=== PATIENT | female | born 1950 | race Caucasian/White ===

== ENCOUNTER 2016-10-16 16:28 | Emergency (ER) | payer MEDICARE ==
[~2016-10-16] VITALS: Ht 157.5 cm; Wt 75.7 kg
[2016-10-16 16:35] VITALS: BP 124/77
[2016-10-16] MEDS ORDERED: OXYcodone/APAP 5/325MG TABLET ONE (17:37)
[2016-10-16] MEDS ORDERED: OXYcodone/APAP 5/325MG TABLET PO ONE (18:00)
== END 2016-10-16 19:07 ==
LOC: ED 18:01
DX: S39.012A Strain of muscle, fascia and tendon of lower back, initial encounter (principal); S29.012A Strain of muscle and tendon of back wall of thorax, initial encounter; X58.XXXA Exposure to other specified factors, initial encounter; Y93.89 Activity, other specified; Y92.89 Other specified places as the place of occurrence of the external cause; Y99.8 Other external cause status
CPT/HCPCS: 72072; 72110; 99284

== ENCOUNTER 2017-06-22 13:01 | Day surgery (SDC) | payer MEDICARE ==
[~2017-06-22] VITALS: Ht 157.5 cm; Wt 71.4 kg
[2017-06-22] MEDS ORDERED: SODIUM CHLORIDE 0.9% 1,000 ML IV ONE (14:30)
[2017-06-22 14:34] VITALS: BP 122/64
[2017-06-22] MEDS ORDERED: LISI1TAB7 PO (14:52)
[2017-06-22] MEDS ORDERED: OMEP-110 PO (14:52)
[2017-06-22] MEDS ORDERED: TIZA4CAP PO (14:52)
[2017-06-22] MEDS ORDERED: MELO15TA24 PO (14:52)
[2017-06-22] MEDS ORDERED: LEVO50TA5 PO (14:52)
[2017-06-22] MEDS ORDERED: SIMV40TA3 PO (14:52)
[2017-06-22] MEDS ORDERED: POLY17PO5 PO (14:52)
[2017-06-22] MEDS ORDERED: ASPI-496 PO (14:52)
[2017-06-22] MEDS ORDERED: ESCI10TA PO (14:52)
[2017-06-22] MEDS ORDERED: ASCO100T5 PO (14:52)
[2017-06-22] MEDS ORDERED: OMEG-157 PO (14:52)
[2017-06-22] MEDS ORDERED: MULT-6 PO (14:57)
[2017-06-22] MEDS ORDERED: ASPIRIN 325 MG TABLET PO ONE (15:00)
[2017-06-22 15:04] LABS: BASOPHILS # (AUTO) 0.06 x10^3/uL (0-0.1); BASOPHILS % (AUTO) 1 % (0-1); EOSINOPHILS # (AUTO) 0.42 x10^3/uL (0-0.4); EOSINOPHILS % (AUTO) 4 % (1-7); LYMPHOCYTES # (AUTO) 2.88 x10^3/uL (1-3.4); LYMPHOCYTES % (AUTO) 27 % (22-44); MD NO; MEAN CORPUSCULAR HEMOGLOBIN 29.3 pg (27.0-34.8); MEAN CORPUSCULAR HGB CONC 33.4 g/dL (32.4-35.8); MEAN CORPUSCULAR VOLUME 87.8 fL (80-100); MEAN PLATELET VOLUME 8.6 fL (7.4-10.4); MONOCYTES # (AUTO) 0.73 x10^3/uL (0.2-0.8); MONOCYTES % (AUTO) 7 % (2-9); NEUTROPHILS # (AUTO) 6.57 x10^3/uL (1.8-6.8); NEUTROPHILS % (AUTO) 62 % (42-75); PLATELET COUNT 308 x10^3/uL (130-400); RED BLOOD COUNT 4.57 x10^6/uL (3.82-5.3); RED CELL DISTRIBUTION WIDTH 13.8 % (9.6-15.2)
[2017-06-22 15:16] LABS: ANION GAP 10 mmol/L (5-15); CHLORIDE 104 mmol/L (98-107)
[2017-06-22 15:17] LABS: CREATININE 1.11 mg/dL (0.55-1.02)
[2017-06-22] MEDS ORDERED: ASPIRIN 325 MG TABLET EC ONE (15:19)
[2017-06-22] MEDS ORDERED: MIDAZOLAM 1 MG/ML, 5ML ONE (15:35)
[2017-06-22] MEDS ORDERED: HEPARIN 1,000 UNITS/ML, 10ML ONE (15:36)
[2017-06-22] MEDS ORDERED: FENTANYL PF 100 MCG/2ML ONE (15:36)
[2017-06-22] MEDS ORDERED: BIVALIRUDIN 250 MG ONE (15:36)
[2017-06-22] MEDS ORDERED: VERAPAMIL 2.5 MG/ML, 2ML ONE (15:36)
[2017-06-22] MEDS ORDERED: TICAGRELOR 90 MG TABLET ONE (15:36)
[2017-06-22] MEDS ORDERED: LIDOCAINE 2%, 2ML ONE (15:37)
== END 2017-06-22 18:54 | disposition home or self-care (01) ==
LOC: CACL 13:01 → 5SO 16:40 → CACL 18:54
PROVIDERS: ATTEND Internal Medicine Cardiovascular Disease
DX: I25.110 Atherosclerotic heart disease of native coronary artery with unstable angina pectoris (principal); E78.5 Hyperlipidemia, unspecified; J44.9 Chronic obstructive pulmonary disease, unspecified; I10 Essential (primary) hypertension; Z79.82 Long term (current) use of aspirin; Z88.5 Allergy status to narcotic agent; Z87.891 Personal history of nicotine dependence
CPT/HCPCS: 36415; 80048; 85025; 93458; 99156; 99157; C1894; J1644; J2250; J3010; J3490; J7030; Q9967; J0583

== ENCOUNTER 2018-06-06 14:31 | Emergency (ER) | payer MEDICARE ==
[~2018-06-06] VITALS: Ht 157.5 cm; Wt 68.5 kg
[~2018-06-06 14:31] MED LIST: ASCO100T5 PO; ASPI-496 PO; ESCI10TA PO; LEVO50TA5 PO; LISI1TAB7 PO; MELO15TA24 PO; MULT-6 PO; OMEG-157 PO; OMEP-110 PO; POLY17PO5 PO; SIMV40TA3 PO; TIZA4CAP PO
--- NOTE | 2018-06-06 14:42 | NUR ---
SEE TRIAGE NOTE. PT PLACED ON HEART MONITOR, BP CUFF, PULSE OX. PT DENIES PAIN AT THIS TIME. EKG COMPLETED AT BS. WARM BLANKET PROVIDED, CALL LIGHT WITHIN REACH.
[2018-06-06] MEDS ORDERED: MECLIZINE 25 MG TABLET PO ONE (15:30)
[2018-06-06] MEDS ORDERED: MECLIZINE CHEWABLE 25 MG TAB ONE (15:36)
[2018-06-06 15:40] LABS: BASOPHILS # (AUTO) 0.03 x10^3/uL (0-0.1); BASOPHILS % (AUTO) 0 % (0-1); EOSINOPHILS # (AUTO) 0.15 x10^3/uL (0-0.4); EOSINOPHILS % (AUTO) 1 % (1-7); LYMPHOCYTES # (AUTO) 2.02 x10^3/uL (1-3.4); LYMPHOCYTES % (AUTO) 17 % (22-44); MD NO; MEAN CORPUSCULAR HEMOGLOBIN 28.8 pg (27.0-34.8); MEAN CORPUSCULAR VOLUME 87.2 fL (80-100); MEAN PLATELET VOLUME 8.6 fL (7.4-10.4); MONOCYTES % (AUTO) 3 % (2-9); NEUTROPHILS # (AUTO) 9.54 x10^3/uL (1.8-6.8); NEUTROPHILS % (AUTO) 79 % (42-75); PLATELET COUNT 287 x10^3/uL (130-400); RED BLOOD COUNT 4.51 x10^6/uL (3.82-5.3); RED CELL DISTRIBUTION WIDTH 13.9 % (9.6-15.2)
[2018-06-06 15:51] LABS: ALANINE AMINOTRANSFERASE 31 U/L (12-78); ANION GAP 7 mmol/L (5-15); CALCIUM 8.8 mg/dL (8.5-10.1); CHLORIDE 99 mmol/L (98-107); CREATININE 1.15 mg/dL (0.55-1.02)
--- NOTE | 2018-06-06 15:51 | NUR ---
PT MEDICATED PER ERP ORDER FOR DIZZINESS. PT UP TO BR WITH SBA TO PROVIDE UA. CALL LIGHT WITHIN REACH, FAMILY AT BS.
[2018-06-06 15:55] LABS: ALKALINE PHOSPHATASE 68 U/L (45-117); BILIRUBIN,TOTAL 0.4 mg/dL (0.2-1.0); TOTAL PROTEIN 7.1 g/dL (6.4-8.2); TROPONIN I 0.015 ng/mL (0.000-0.045)
--- NOTE | 2018-06-06 16:15 | NUR ---
URINE COLLECTED/SENT TO LAB. PT IN CT.
[2018-06-06 16:26] LABS: MICROSCOPIC AUTO
[2018-06-06 16:33] LABS: CULTURE INDICATED? YES
--- NOTE | 2018-06-06 16:39 | NUR ---
ALL RESULTS BACK, PT FOR RECHECK.
--- NOTE | 2018-06-06 17:30 | NUR ---
CHICKEN BROTH GIVEN PER ERP INSTRUCTION. ADD ON LAB. PT AND FAMILY INSTRUCTED ON POC CHANGES. CALL LIGHT WITHIN REACH.
[2018-06-06 18:11] VITALS: BP 149/57
== END 2018-06-06 18:24 | disposition home or self-care (01) ==
LOC: ED 18:18
DX: E87.1 Hypo-osmolality and hyponatremia (principal); R42 Dizziness and giddiness; E03.9 Hypothyroidism, unspecified; I10 Essential (primary) hypertension; E78.00 Pure hypercholesterolemia, unspecified; K21.9 Gastro-esophageal reflux disease without esophagitis; Z90.49 Acquired absence of other specified parts of digestive tract; Z90.710 Acquired absence of both cervix and uterus
CPT/HCPCS: 36415; 70450; 71045; 80053; 81001; 83930; 84300; 84443; 84484; 85025; 87086; 87147; 93005; 99284

== ENCOUNTER → 2019-04-03 | Outpatient (CLI) | payer MEDICARE ==
[~2019-04-03] MED LIST changes: +LISI1TAB20 PO; -LISI1TAB7 PO; +SIMV40TA20 PO; -SIMV40TA3 PO
== END | disposition home or self-care (01) ==
LOC: CFH 08:35
PROVIDERS: ATTEND Internal Medicine Cardiovascular Disease
DX: I08.3 Combined rheumatic disorders of mitral, aortic and tricuspid valves (principal); I08.8 Other rheumatic multiple valve diseases
CPT/HCPCS: 93306

== ENCOUNTER 2019-08-30 08:10 | Observation (INO) | payer MEDICARE ==
[~2019-08-30] VITALS: Ht 157.5 cm; Wt 61.0 kg
[~2019-08-30 08:10] MED LIST changes: +ALBU90AE INH; +APIX5TAB PO; +DIGO125T85 PO; +DILT120C11 PO; +DILT240C55 PO; +FLUT1BLS3 IH; +FURO20TA3 PO; +LEVO50TA PO; +LISI5TAB7 PO; +METO50TA82 PO; +NYST1000 PO; +WARF-36 PO
[2019-08-30] MEDS ORDERED: SODIUM CHLORIDE 0.9% 1,000 ML IV SCH ×2 (09:20→14:24)
[2019-08-30 09:25] VITALS: BP 120/89
[2019-08-30 10:04] LABS: BASOPHILS % (AUTO) 1 % (0-1); EOSINOPHILS # (AUTO) 0.23 x10^3/uL (0-0.4); EOSINOPHILS % (AUTO) 3 % (1-7); LYMPHOCYTES # (AUTO) 2.24 x10^3/uL (1-3.4); LYMPHOCYTES % (AUTO) 29 % (22-44); MD NO; MEAN CORPUSCULAR HEMOGLOBIN 28.8 pg (27.0-34.8); MEAN CORPUSCULAR VOLUME 87.2 fL (80-100); MEAN PLATELET VOLUME 8.5 fL (7.4-10.4); MONOCYTES # (AUTO) 0.64 x10^3/uL (0.2-0.8); MONOCYTES % (AUTO) 8 % (2-9); NEUTROPHILS # (AUTO) 4.42 x10^3/uL (1.8-6.8); NEUTROPHILS % (AUTO) 58 % (42-75); PLATELET COUNT 358 x10^3/uL (130-400); RED CELL DISTRIBUTION WIDTH 15.1 % (9.6-15.2)
[2019-08-30 10:14] LABS: ANION GAP 6 mmol/L (5-15); CALCIUM 9.8 mg/dL (8.5-10.1); CHLORIDE 108 mmol/L (98-107); CREATININE 1.09 mg/dL (0.55-1.02)
[2019-08-30 10:18] LABS: INTERNATIONAL NORMALIZED RATIO 1.16 (0.93-1.1); PROTHROMBIN TIME 12.3 Seconds (9.6-11.5)
[2019-08-30] MEDS ORDERED: HEPARIN 1,000 UNITS/ML, 10ML ONE (12:08)
[2019-08-30] MEDS ORDERED: MIDAZOLAM 1 MG/ML, 5ML ONE (12:08)
[2019-08-30] MEDS ORDERED: FENTANYL PF 100 MCG/2ML ONE (12:08)
[2019-08-30] MEDS ORDERED: VERAPAMIL 2.5 MG/ML, 2ML ONE (12:09)
[2019-08-30 14:25] VITALS: BP 117/72
[2019-08-30] MEDS ORDERED: ALBUTEROL HFA 90 MCG/SPRAY INH PRN (14:30)
[2019-08-30] MEDS ORDERED: WARFARIN 5 MG TABLET PO-COUM SCH (18:00)
[2019-08-30] MEDS ORDERED: ACETAMINOPHEN 325 MG TABLET PO PRN ×2 (18:30)
[2019-08-30 21:00] VITALS: BP 105/63
[2019-08-31 01:35] VITALS: BP 95/60
[2019-08-31 05:42] LABS: CHLORIDE 107 mmol/L (98-107)
[2019-08-31 05:49] LABS: ANION GAP 5 mmol/L (5-15); CALCIUM 8.6 mg/dL (8.5-10.1); CREATININE 0.96 mg/dL (0.55-1.02)
[2019-08-31] MEDS ORDERED: LEVOTHYROXINE 50 MCG TABLET PO SCH (06:00)
[2019-08-31 07:49] VITALS: BP 123/79
[2019-08-31] MEDS ORDERED: DIGOXIN 0.125 MG TABLET PO SCH (09:00)
[2019-08-31] MEDS ORDERED: ESCITALOPRAM 10MG TABLET PO SCH (09:00)
[2019-08-31] MEDS ORDERED: DILTIAZEM 240 MG CAP.ER.24H PO SCH (09:00)
[2019-08-31] MEDS ORDERED: FUROSEMIDE 20 MG TABLET PO SCH (09:00)
[2019-08-31] MEDS ORDERED: FURO20TA3 PO (10:07)
[2019-08-31] MEDS ORDERED: ACET325T26 PO (10:07)
[2019-08-31] MEDS ORDERED: WARF-36 PO (10:07)
[2019-08-31] MEDS ORDERED: DILT240C55 PO (10:07)
== END 2019-08-31 12:04 | disposition home or self-care (01) ==
LOC: CACL 08:10 → 5SO 14:18 → CACL 14:50 → ORIP 14:51 → 5SO 16:45 → DCLOUNGE 08-31 11:57
PROVIDERS: ADMIT Internal Medicine Cardiovascular Disease; ATTEND Internal Medicine Cardiovascular Disease
DX: I34.2 Nonrheumatic mitral (valve) stenosis (principal); I48.91 Unspecified atrial fibrillation; I10 Essential (primary) hypertension; E78.5 Hyperlipidemia, unspecified; J44.9 Chronic obstructive pulmonary disease, unspecified; Z87.891 Personal history of nicotine dependence; Z79.899 Other long term (current) drug therapy
CPT/HCPCS: 36415; 80048; 85025; 85610; 85730; 93460; 99156; 99157; C1769; C1894; G0378; J1644; J2250; J3010; J7030; Q9967

== ENCOUNTER → 2020-04-01 | Outpatient (CLI) | payer MEDICARE ==
[~2020-04-01] MED LIST changes: +ACET325T26 PO; -ESCI10TA PO; +ESCI10TA97 PO
== END | disposition home or self-care (01) ==
LOC: CFH 12:35
PROVIDERS: ATTEND Internal Medicine Clinical Cardiac Electrophysiology
DX: I08.8 Other rheumatic multiple valve diseases (principal)
CPT/HCPCS: 93306